=== PATIENT | male | born 1955 | race Caucasian/White ===

== ENCOUNTER 2020-11-28 08:30 | Outpatient (RCR) | payer MEDICARE, OTHER ==
[2020-11-26 10:58] VITALS: BP 149/76; PULSE 56; TEMP 98.1
[~2020-11-28] VITALS: Ht 180.3 cm; Wt 93.1 kg
[~2020-11-28 08:30] MED LIST: BACTRIM DS 8001 TAB PO; CARDIZEM CD 18180 MG PO; CARDIZEM CD 24240 MG PO; CELLCEPT 5500 MG/TAB PO; DIFLUCAN 100MG100 MG PO; LIPITOR 40MG TA40 MG PO; LOPRESSOR 225 MG/TAB PO; LUNESTA3 MG PO; OSCAL 500 TAB500 MG PO; PREDNISONE 5MG5 MG PO; PROTONIX 40MG T40 MG PO; TAMBOCOR 1100 MG/TAB PO; TYLENOL 500MG500 MG PO; VITAMIND3 5000 PO; XANAX 0.5MG0.5 MG PO; XANAX 1MG1 MG PO; ZOVIRAX 200MG200 MG PO
[2020-11-28 08:59] VITALS: BP 159/75; PULSE 62; TEMP 97.6
[2020-12-31] MEDS ORDERED: VALCYTE450 MG PO (08:45)
[2020-12-31] MEDS ORDERED: PROGRAF 1MG1 MG PO (08:48)
[2021-01-01] MEDS ORDERED: ZITHROMAX500 M2 PO (08:38)
== END 2020-11-28 10:07 | disposition home or self-care (01) ==
LOC: EUO 08:30
DX: T86.810 Lung transplant rejection (principal)
CPT/HCPCS: J2930

== ENCOUNTER 2021-01-02 08:00 | Outpatient (RCR) | payer MEDICARE ==
[2020-12-31 08:33] VITALS: BP 144/65; PULSE 62; TEMP 97.8
[2020-12-31 08:55] VITALS: BP 144/65; PULSE 62; TEMP 97.8
[2021-01-01 08:45] VITALS: BP 158/74; PULSE 62; TEMP 98.3
[~2021-01-02] VITALS: Ht 180.3 cm; Wt 93.3 kg
[~2021-01-02 08:00] MED LIST changes: +PROGRAF 1MG1 MG PO; +VALCYTE450 MG PO; +ZITHROMAX500 M2 PO
[2021-01-02 09:00] VITALS: BP 141/68; PULSE 60; TEMP 97.5
== END 2021-01-02 09:00 ==
LOC: EUO 08:00
DX: Z79.899 Other long term (current) drug therapy (principal)
CPT/HCPCS: J2930; J7050

== ENCOUNTER 2021-07-27 10:44 | Outpatient (CLI) | payer MEDICARE ==
[~2021-07-27] VITALS: Ht 180.3 cm; Wt 90.4 kg
[2021-07-27] VITALS (13 sets, daily range): BP systolic 128–160; BP diastolic 65–90; PULSE 52–65; TEMP 97.2–98.3
[2021-07-27] MEDS ORDERED: PROTONIX 40MG T40 MG PO (11:36)
--- NOTE | 2021-07-27 14:45 | NUR ---
Pt tolerated initial IGG infusion without issue. INT DC'd with catheter intact. He is escorted out to elevator.
== END 2021-07-27 14:45 | disposition home or self-care (01) ==
LOC: EUO 10:44
DX: D80.3 Selective deficiency of immunoglobulin G [IgG] subclasses (principal)
CPT/HCPCS: J1569

== ENCOUNTER 2021-08-26 10:54 | Outpatient (CLI) | payer MEDICARE ==
[~2021-08-26] VITALS: Ht 180.3 cm; Wt 92.2 kg
[2021-08-26] VITALS (8 sets, daily range): BP systolic 127–172; BP diastolic 69–88; PULSE 49–61; TEMP 98–98.3
== END 2021-08-26 15:46 | disposition home or self-care (01) ==
LOC: EUO 10:54
DX: Z94.2 Lung transplant status (principal)
CPT/HCPCS: J1569; J2920

== ENCOUNTER 2021-11-12 09:58 | Outpatient (CLI) | payer MEDICARE ==
[~2021-11-12] VITALS: Ht 180.3 cm; Wt 94.4 kg
[2021-11-12 10:27] VITALS: BP 145/64; PULSE 62; TEMP 97.8
--- NOTE | 2021-11-12 12:00 | NUR ---
Warm blanket provided. Pt napping in recliner chair. Respirations remain even and unlabored. Call light in reach.
[2021-11-12 12:28] VITALS: BP 159/58; PULSE 58
--- NOTE | 2021-11-12 12:32 | NUR ---
Pt remained in dept for 1 hr following injections. Respirations remain even and unlabored. Pt is free of complaints. He ambulates from dept with steady gait.
== END 2021-11-12 12:33 | disposition home or self-care (01) ==
LOC: EUO 09:58
DX: U07.1 COVID-19 (principal)
CPT/HCPCS: M0220

== ENCOUNTER → 2023-06-29 | Outpatient (CLI) | payer MEDICARE ==
[~2023-06-29] MED LIST changes: +Iohexol 300 - 10 ML VIAL IV ONE; +Triamcinolone 40 MG/ML 1 ML VIAL IJ ONE
== END ==
LOC: COL.RAD 13:00
DX: M79.671 Pain in right foot (principal)
CPT/HCPCS: J0665; J3301; Q9967